=== PATIENT | male | born 1990 | race Hispanic/Latino ===

== ENCOUNTER 2018-09-10 01:24 | Emergency (ER) | payer BC, SELFPAY ==
[2018-09-10 02:01] LABS: Absolute Lymphocytes (CBC) 3.3 K/uL (0.7-4.9); Absolute Monocytes 0.7 K/uL (0.1-1.3); Absolute Neutrophil 5.4 K/uL (1.8-8.0); Basophils % 0.6 % (0-1.3); Eosinophils % 0.5 % (0-4.4); Hematocrit 43.8 % (39.6-49.0); Lymphocytes % 34.3 % (15.3-44.8); RBC Red Blood Cell Count 4.96 M/uL (4.33-5.43)
[2018-09-10 02:07] LABS: Protime INR 0.95
[2018-09-10] MEDS ORDERED: LORazepam 2 MG/ML VIAL ONE (02:09)
[2018-09-10] MEDS ORDERED: FOLIC ACID 5 MG/ML VIAL ONE (02:10)
[2018-09-10] MEDS ORDERED: MULTIVITAMINS 10 ML VIAL (INJ) IV ONE (02:10)
[2018-09-10] MEDS ORDERED: THIAMINE 200 MG/2 ML INJ ONE (02:10)
[2018-09-10] MEDS ORDERED: NA CHLORIDE 0.9% 1,000 ML ONE (02:11)
[2018-09-10 02:26] LABS: Urine Blood TRACE (NEG); Urine Glucose NEGATIVE (NEG); Urine Protein NEGATIVE (NEG); Urine Specific Gravity 1.015 (1.005-1.030)
[2018-09-10 02:30] LABS: ALT/SGPT 28 U/L (12-78); AST/SGOT 26 U/L (15-37); Albumin 4.3 g/dL (3.4-5.0); Alkaline Phosphatase 79 U/L (45-117); BUN Blood Urea Nitrogen 13 mg/dL (7-18); Bicarbonate 27 mmol/L (21-32); Bilirubin Direct < 0.1 mg/dL (0-0.2); Bilirubin Total 0.2 mg/dL (0.2-1.0); Glucose Level 101 mg/dL (74-106); Potassium 3.7 mmol/L (3.5-5.1); Protein, Total 8.1 g/dL (6.4-8.2); Sodium Level 144 mmol/L (136-145)
[2018-09-10 02:39] LABS: Barbiturates NEGATIVE (NEGATIVE); Benzodiazepines NEGATIVE (NEGATIVE); Cocaine NEGATIVE (NEGATIVE); METHAMPHETAM NEGATIVE (NEGATIVE); Methadone NEGATIVE (NEGATIVE); Opiates NEGATIVE (NEGATIVE); Phencyclidine NEGATIVE (NEGATIVE); THC Cannibis NEGATIVE (NEGATIVE)
--- NOTE | 2018-09-10 06:36 | EDPHYS ---
Physician Documentation [facility] Name: Tyrone Valencia Age: 28 yrs Sex: Male : 1990 Arrival Date: 09/10/2018 Time: 01:25 Bed 3 Private MD: ED Physician Mitch Rudolph HPI: 09/10 01:55 This 28 yrs old Male presents to ER via EMS with unknown complaint. pkl 01:55 Onset: The symptoms/episode began/occurred just prior to arrival. Possible causes: pkl alcohol, has had a recent alcohol binge. Patient admits to drinking 1/2 gallon of tequila. Historical: - Allergies: 01:30 SHELLFISH; tl2 01:30 Iodine; tl2 - Home Meds: 01:30 None [Active]; tl2 - PMHx: 01:30 None; tl2 - PSHx: 01:30 None; tl2 - Immunization history:: Adult Immunizations up to date. - Social history:: Smoking status: Patient/guardian denies using tobacco. - Ebola Screening: : No symptoms or risks identified at this time. ROS: 01:55 Eyes: Negative for injury, pain, redness, and discharge, ENT: Negative for injury, pkl pain, and discharge, Neck: Negative for injury, pain, and swelling, Cardiovascular: Negative for chest pain, palpitations, and edema, Respiratory: Negative for shortness of breath, cough, wheezing, and pleuritic chest pain, Abdomen/GI: Negative for abdominal pain, nausea, vomiting, diarrhea, and constipation, Back: Negative for injury and pain, : Negative for injury, bleeding, discharge, and swelling, MS/Extremity: Negative for injury and deformity, Skin: Negative for injury, rash, and discoloration, Neuro: Negative for headache, weakness, numbness, tingling, and seizure. Exam: 01:55 Head/Face: Normocephalic, atraumatic. Eyes: Pupils equal round and reactive to light, pkl extra-ocular motions intact. Lids and lashes normal. Conjunctiva and sclera are non-icteric and not injected. Cornea within normal limits. Periorbital areas with no swelling, redness, or edema. ENT: Nares patent. No nasal discharge, no septal abnormalities noted. Tympanic membranes are normal and external auditory canals are clear. Oropharynx with no redness, swelling, or masses, exudates, or evidence of obstruction, uvula midline. Mucous membranes moist. Neck: Trachea midline, no thyromegaly or masses palpated, and no cervical lymphadenopathy. Supple, full range of motion without nuchal rigidity, or vertebral point tenderness. No Meningismus. Chest/axilla: Normal chest wall appearance and motion. Nontender with no deformity. No lesions are appreciated. Cardiovascular: Regular rate and rhythm with a normal S1 and S2. No gallops, murmurs, or rubs. Normal PMI, no JVD. No pulse deficits. Respiratory: Lungs have equal breath sounds bilaterally, clear to auscultation and percussion. No rales, rhonchi or wheezes noted. No increased work of breathing, no retractions or nasal flaring. Abdomen/GI: Soft, non-tender, with normal bowel sounds. No distension or tympany. No guarding or rebound. No evidence of tenderness throughout. Back: No spinal tenderness. No costovertebral tenderness. Full range of motion. Skin: Warm, dry with normal turgor. Normal color with no rashes, no lesions, and no evidence of cellulitis. MS/ Extremity: Pulses equal, no cyanosis. Neurovascular intact. Full, normal range of motion. Neuro: Awake and alert, GCS 15, oriented to person, place, time, and situation. Cranial nerves II-XII grossly intact. Motor strength 5/5 in all extremities. Sensory grossly intact. Cerebellar exam normal. Normal gait. Vital Signs: 01:30 BP 156 / 112; Pulse 73; Resp 18; Pulse Ox 98% on R/A; Weight 72.57 kg; Height 5 ft. 11 tl2 in. (180.34 cm); Pain 0/10; 04:15 BP 99 / 52; Pulse 70; Resp 18; Pulse Ox 97% on R/A; tl2 05:30 BP 101 / 75; Pulse 65; Resp 18; Pulse Ox 99% on R/A; tl2 06:44 BP 116 / 74; Pulse 69; Resp 18; Pulse Ox 99% on R/A; tl2 01:30 Body Mass Index 22.32 (72.57 kg, 180.34 cm) tl2 MDM: 01:52 Patient medically screened. pkl 06:33 Data reviewed: vital signs, nurses notes, lab test result(s). pkl 01/05 01:46 Order name: Basic Metabolic Panel; Complete Time: 03:06 tl09/10 01:46 Order name: CBC with Diff; Complete Time: 03:06 tl09/10 01:46 Order name: ETOH Level; Complete Time: 03:06 tl09/10 01:46 Order name: Hepatic Function; Complete Time: 03:06 tl1 09/10 01:46 Order name: PT-INR; Complete Time: 03:06 tl09/10 01:46 Order name: Ptt, Activated; Complete Time: 03:06 tl09/10 01:46 Order name: Urine Drug Screen; Complete Time: 03:06 tl09/10 01:46 Order name: IV Saline Lock; Complete Time: 01:46 tl09/10 01:46 Order name: Labs collected and sent; Complete Time: 01:46 tl1 09/10 01:46 Order name: Urine Dipstick-Ancillary (obtain specimen); Complete Time: 01:58 tl1 09/10 02:24 Order name: Urine Dipstick--Ancillary (enter results); Complete Time: 03:06 em1 Administered Medications: 02:08 Drug: Banana Bag - (NS 0.9% 1000 ml, foLIC Acid 1 mg, Thiamine 100 mg, Multivitamin 1 tl2 amp) Route: IV; Rate: calculated rate; Site: left antecubital; 07:11 Follow up: IV Status: Completed infusion; IV Intake: 1000ml tl2 02:09 Drug: Ativan 1 mg Route: IVP; Site: left antecubital; tl2 02:30 Follow up: Response: No adverse reaction; Anxiety decreased tl2 Disposition: 09/10/18 06:36 Discharged to Home. Impression: Alcohol Intoxication. - Condition is Stable. - Medication Reconciliation Form, Thank You Letter, Antibiotic Education, Prescription Opioid Use form. - Follow up: Private Physician; When: 2 - 3 days; Reason: Re-evaluation by your physician. - Problem is new. - Symptoms have improved. Signatures: Dispatcher [employer] EDMS Mitch Rudolph MD MD pkl Lasagna, Tonya, RN RN tl1 Kia Stokes RN RN tl2 Corrections: (The following items were deleted from the chart) 07:12 06:36 09/10/2018 06:36 Discharged to Home. Impression: Alcohol Intoxication. Condition tl2 is Stable. Forms are Medication Reconciliation Form, Thank You Letter, Antibiotic Education, Prescription Opioid Use. Follow up: Private Physician; When: 2 - 3 days; Reason: Re-evaluation by your physician. Problem is new. Symptoms have improved. pkl
--- NOTE | 2018-09-10 06:36 | ER ---
Nurse's Notes [facility] Name: Tyrone Valencia Age: 28 yrs Sex: Male : 1990 Arrival Date: 09/10/2018 Time: 01:25 Bed 3 Private MD: Diagnosis: Alcohol Intoxication Presentation: 09/10 01:27 Presenting complaint: EMS states: Pt called from driveway and stated that he had drank tl2 1/2 gallon of tequila. Pt is crying in triage, AOx2. Transition of care: patient was not received from another setting of care. Onset of symptoms was September 10, 2018 at 01:29. Risk Assessment: Do you want to hurt yourself or someone else?. Initial Sepsis Screen: Does the patient meet any 2 criteria? No. Patient's initial sepsis screen is negative. Does the patient have a suspected source of infection? No. Patient's initial sepsis screen is negative. Care prior to arrival: IV initiated. 18 GA, in the right antecubital area. 01:27 Method Of Arrival: EMS: [facility] tl2 01:27 Acuity: DEMETRIS 3 tl2 Triage Assessment: 01:30 General: Appears in no apparent distress. uncomfortable, Behavior is agitated, anxious, tl2 crying, Smells of alcohol. Pain: Denies pain. Neuro: Level of Consciousness is awake, alert, obeys commands, Oriented to person, place, time, situation. Cardiovascular: Denies chest pain. Respiratory: Airway is patent Respiratory effort is even, unlabored, Respiratory pattern is regular, symmetrical. GI: Reports nausea. : No signs and/or symptoms were reported regarding the genitourinary system. Derm: Skin is pink, warm \T\ dry. Historical: - Allergies: 01:30 SHELLFISH; tl2 01:30 Iodine; tl2 - Home Meds: 01:30 None [Active]; tl2 - PMHx: 01:30 None; tl2 - PSHx: 01:30 None; tl2 - Immunization history:: Adult Immunizations up to date. - Social history:: Smoking status: Patient/guardian denies using tobacco. - Ebola Screening: : No symptoms or risks identified at this time. Screenin:32 Abuse screen: Denies threats or abuse. Nutritional screening: No deficits noted. tl2 Tuberculosis screening: No symptoms or risk factors identified. Fall Risk IV access (20 points). Mental Status- Overestimates/Forgets Limitations (15 pts.). Assessment: 01:30 General: see triage assessment. tl2 02:49 Reassessment: Patient appears in no apparent distress at this time. pt sleeping, RR tl2 even and unlabored. Fluids infusing. 06:13 Reassessment: Patient appears in no apparent distress at this time. Will discharge tl2 after 0630 and will call for a ride. Pt appears to be sleeping, RR even and unlabored. 06:45 Reassessment: Patient appears in no apparent distress at this time. Patient and/or tl2 family updated on plan of care and expected duration. Pain level reassessed. Patient is alert, oriented x 3, equal unlabored respirations, skin warm/dry/pink. instructed pt to call for a ride. 07:08 Reassessment: Patient appears in no apparent distress at this time. Patient and/or tl2 family updated on plan of care and expected duration. Pain level reassessed. Patient is alert, oriented x 3, equal unlabored respirations, skin warm/dry/pink. pt is awake, alert and ambulatory. Pt's ride is at bedside. Pt verbalized understanding of discharge instructions, need for follow up and safety practices. Vital Signs: 01:30 BP 156 / 112; Pulse 73; Resp 18; Pulse Ox 98% on R/A; Weight 72.57 kg; Height 5 ft. 11 tl2 in. (180.34 cm); Pain 0/10; 04:15 BP 99 / 52; Pulse 70; Resp 18; Pulse Ox 97% on R/A; tl2 05:30 BP 101 / 75; Pulse 65; Resp 18; Pulse Ox 99% on R/A; tl2 06:44 BP 116 / 74; Pulse 69; Resp 18; Pulse Ox 99% on R/A; tl2 01:30 Body Mass Index 22.32 (72.57 kg, 180.34 cm) tl2 ED Course: 01:25 Patient arrived in ED. ag3 01:29 Triage completed. tl2 01:30 Arm band placed on right wrist. tl2 01:32 Patient has correct armband on for positive identification. Bed in low position. Call tl2 light in reach. Side rails up X2. 01:32 Maintain EMS IV. Dressing intact. Good blood return noted. Site clean \T\ dry. Gauge \T\ tl 2 site: 18 g R AC. 01:52 Mitch Rudolph MD is Attending Physician. pkl 02:09 Inserted saline lock: 18 gauge in left antecubital area, using aseptic technique. tl2 05:30 No provider procedures requiring assistance completed. tl2 07:08 Kia Stokes RN is Primary Nurse. tl2 07:08 IV discontinued, intact, bleeding controlled, No redness/swelling at site. Pressure tl2 dressing applied. Administered Medications: 02:08 Drug: Banana Bag - (NS 0.9% 1000 ml, foLIC Acid 1 mg, Thiamine 100 mg, Multivitamin 1 tl2 amp) Route: IV; Rate: calculated rate; Site: left antecubital; 07:11 Follow up: IV Status: Completed infusion; IV Intake: 1000ml tl2 02:09 Drug: Ativan 1 mg Route: IVP; Site: left antecubital; tl2 02:30 Follow up: Response: No adverse reaction; Anxiety decreased tl2 Intake: 07:11 IV: 1000ml; Total: 1000ml. tl2 Outcome: 06:36 Discharge ordered by . pkl 07:08 Discharged to home ambulatory, with family. tl2 07:08 Condition: stable 07:08 Discharge instructions given to patient, Instructed on discharge instructions, follow up and referral plans. Demonstrated understanding of instructions, follow-up care. 07:12 Patient left the ED. tl2 Signatures: Mitch Rudolph MD MD pkl Knox, Taylor, RN RN tl2 Ioana Ryan ag3
[2018-09-10 07:28] VITALS: O2SAT 99
[2018-09-10 07:30] VITALS: BP 116/74
== END 2018-09-10 07:12 | disposition home or self-care (01) ==
LOC: ER 01:24
DX: F10.129 Alcohol abuse with intoxication, unspecified (principal); Z91.013 Allergy to seafood; Z91.048 Other nonmedicinal substance allergy status
CPT/HCPCS: 36415; 80048; 80076; 80307; 80320; 81003; 85025; 85610; 85730; 96365; 96366; 96375; 99284; J3411; J7030

== ENCOUNTER 2023-04-21 15:46 | Emergency (ER) | payer SELFPAY ==
--- NOTE | 2023-04-21 19:38 | ER ---
Nurse's Notes [facility] Name: Tyrone Valencia Age: 32 yrs Sex: Male : 1990 Arrival Date: 04/21/2023 Time: 15:46 Bed External Waiting Private MD: Diagnosis: Nausea with vomiting, unspecified;Diarrhea, unspecified Presentation: 04/21 16:20 Chief complaint: Patient states: vomiting, diarrhea, weakness X4 days. No fever, cough, cm10 or congestion. Coronavirus screen: Client denies travel out of the [place] in the last 14 days. Ebola Screen: Patient denies travel to an Ebola-affected area in the 21 days before illness onset. No symptoms or risks identified at this time. Initial Sepsis Screen: Does the patient meet any 2 criteria? No. Patient's initial sepsis screen is negative. Does the patient have a suspected source of infection? No. Patient's initial sepsis screen is negative. Risk Assessment: Do you want to hurt yourself or someone else? Patient reports no desire to harm self or others. Onset of symptoms was April 17, 2023. 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 - Social history:: Smoking status: Patient reports the use of cigarette tobacco products, smokes 1.5 packs per day, Patient uses street drugs, marijuana. Vital Signs: 16:20 BP 132 / 77; Pulse 50; Resp 18; Temp 98.8; Pulse Ox 100% ; Weight 93.89 kg; Height 6 cm10 ft. 0 in. ; 16:20 Body Mass Index 28.07 (93.89 kg, 182.88 cm) cm10 ED Course: 15:48 Patient arrived in ED. rg4 15:53 Rosa Mccabe PA-C is PHCP. sb4 15:54 Sean Monteiro MD is Attending Physician. sb4 16:10 PHCP role handed off by Rosa Mccabe PA-C kb 16:10 Danielle Patterson FNP-C is PHCP. kb 16:21 Triage completed. cm10 16:22 Arm band placed on Patient placed in waiting room. cm10 Administered Medications: No medications were administered Outcome: 19:38 Discharge ordered by . kb 19:39 Patient left the ED. kb Signatures: Danielle Patterson FNP-C FNP-Ckb Garcia, Rubi rg4 Rosa Mccabe PA-C PA-C sb4 Ayaka Smith RN RN cm10 Corrections: (The following items were deleted from the chart) 16:22 16:22 PMHx: None; cm10 cm10
--- NOTE | 2023-04-21 19:39 | EDPHYS ---
Physician Documentation [facility] Name: Tyrone Valencia Age: 32 yrs Sex: Male : 1990 Arrival Date: 04/21/2023 Time: 15:46 Bed External Waiting Private MD: ED Physician Sean Monteiro HPI: 04/21 17:29 This 32 yrs old Male presents to ER via Ambulatory with complaints of kb Abdominal Cramping, Vomiting. 17:29 The patient presents to the emergency department with nausea, vomiting, diarrhea. kb Onset: The symptoms/episode began/occurred 4 day(s) ago. Possible causes: unknown. The symptoms are aggravated by nothing. The symptoms are alleviated by nothing. Associated signs and symptoms: Pertinent positives: diarrhea, nausea, vomiting, Pertinent negatives: abdominal pain, fever. Severity of symptoms: At their worst the symptoms were moderate in the emergency department the symptoms are unchanged. The patient has not experienced similar symptoms in the past. The patient has not recently seen a physician. Patient reports nausea, vomiting, diarrhea that started 4 days ago. States he believes he got overheated due to working outdoors. Came in because he believes he is dehydrated.. Historical: - Allergies: 16:22 Iodine; cm10 16:22 SHELLFISH; cm10 - PMHx: 16:22 "Borderline DM"; cm10 - Immunization history:: Adult Immunizations unknown. - Social history:: Smoking status: Patient reports the use of cigarette tobacco products, smokes 1.5 packs per day, Patient uses street drugs, marijuana. ROS: 17:30 Constitutional: Negative for fever, chills, and weight loss. kb 17:30 Abdomen/GI: Positive for nausea, vomiting, and diarrhea, Negative for abdominal pain. 17:30 All other systems are negative. Exam: 17:30 Constitutional: This is a well developed, well nourished patient who is awake, alert, kb and in no acute distress. Head/Face: Normocephalic, atraumatic. ENT: Moist Mucous membranes Cardiovascular: Regular rate and rhythm with a normal S1 and S2. No gallops, murmurs, or rubs. No pulse deficits. Respiratory: Respirations even and unlabored. No increased work of breathing. Talking in full sentences Abdomen/GI: Soft, non-tender. No distention Skin: Warm, dry with normal turgor. Normal color. MS/ Extremity: Pulses equal, no cyanosis. Neurovascular intact. Full, normal range of motion. Neuro: Awake and alert, GCS 15, oriented to person, place, time, and situation. Moves all extremities. Normal gait. Vital Signs: 16:20 BP 132 / 77; Pulse 50; Resp 18; Temp 98.8; Pulse Ox 100% ; Weight 93.89 kg; Height 6 cm10 ft. 0 in. ; 16:20 Body Mass Index 28.07 (93.89 kg, 182.88 cm) cm10 MDM: 15:54 Patient medically screened. sb4 17:30 Differential diagnosis: Nonspecific abd pain, viral gastroenteritis, Dehydration, kb abnormal electrolytes. Data reviewed: vital signs, nurses notes. 19:38 ED course: Pt elected to leave from [facility] prior to workup. . kb 04/21 16:10 Order name: IV Saline Lock kb 04/21 16:10 Order name: Labs collected and sent kb 04/21 16:10 Order name: EKG - Nurse/Tech kb Administered Medications: No medications were administered Disposition: 04/22 10:05 Co-signature as Attending Physician, Sean Monteiro MD I reviewed the patient's care rt provided by the Advanced Practice Provider and agree with the diagnosis and treatment plan. Disposition Summary: 04/21/23 19:38 Discharge Ordered Location: Home kb Condition: Stable kb Diagnosis - Nausea with vomiting, unspecified kb - Diarrhea, unspecified kb Followup: kb - With: Emergency Department - When: As needed - Reason: Worsening of condition Followup: kb - With: Private Physician - When: 2 - 3 days - Reason: Recheck today's complaints, Continuance of care, Re-evaluation by your physician Discharge Instructions: - Discharge Summary Sheet kb - Nausea and Vomiting, Adult, [id number] kb - Diarrhea, Adult, [id number] kb Forms: - Medication Reconciliation Form kb - Thank You Letter kb - Antibiotic Education kb - Prescription Opioid Use kb - Patient Portal Instructions kb - Leadership Thank You Letter kb Signatures: Dispatcher [employer] EDOR Danielle Patterson, [employer]-C Rosa Richardson PAChrisC PA-C sb4 Sean Monteiro MD MD rt Ayaka Smith RN RN cm10 Corrections: (The following items were deleted from the chart) 04/21 16:22 16:22 PMHx: None; cm10 cm10
[2023-04-21 19:51] VITALS: BP 132/77; TEMP 98.8; O2SAT 100
== END 2023-04-21 19:39 | disposition home or self-care (01) ==
LOC: ER 15:46
DX: R11.2 Nausea with vomiting, unspecified (principal); R19.7 Diarrhea, unspecified